=== PATIENT | male | born 1975 | race Caucasian/White ===

== ENCOUNTER 2022-07-19 01:27 | Emergency (ER) | payer OTHER ==
[2022-07-19 01:38] VITALS: TEMP 98.2
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
[2022-07-19 03:32] LABS: Basophils % (A) 1 %; Eosinophils # (A) 0.2 k/uL (0-0.7); Eosinophils % (A) 4 %; HCT 39.1 % (39.0-53.0); HGB 13.4 gm/dL (13.0-17.5); Lymphocytes # (A) 1.1 k/uL (1.0-4.8); Lymphocytes % (A) 28 %; MCH 34.7 pg (25.0-35.0); MCHC 34.2 g/dL (31.0-37.0); MCV 101.5 fL (80.0-100.0); Mean Platelet Volume 8.5; Monocytes # (A) 0.4 k/uL (0-1.0); Monocytes % (A) 10 %; Neutrophils # (A) 2.1 k/uL (1.3-7.7); Neutrophils % (A) 54 %; Platelet Count 170 k/uL (150-450); RBC 3.85 m/uL (4.30-5.90); WBC 3.8 k/uL (3.8-10.6)
[2022-07-19 03:53] LABS: ALT 86 U/L (4-49); AST 165 U/L (17-59); African American GFR (CKD) >90 (>60 ml/min/1.73 sqM); Alkaline Phosphatase 71 U/L (38-126); Anion Gap 9 mmol/L; Blood Urea Nitrogen 7 mg/dL (9-20); Carbon Dioxide 25 mmol/L (22-30); Chloride 104 mmol/L (98-107); Glucose 101 mg/dL (74-99); Magnesium 1.7 mg/dL (1.6-2.3); Non-African American GFR(CKD) >90 (>60 ml/min/1.73 sqM); Potassium 3.5 mmol/L (3.5-5.1); Sodium 138 mmol/L (137-145); Total Bilirubin 1.3 mg/dL (0.2-1.3); Total Protein 6.4 g/dL (6.3-8.2)
[2022-07-19 04:04] VITALS: BP 140/98; PULSE 88; RESP 18
== END 2022-07-19 04:04 | disposition home or self-care (01) ==
LOC: EC 01:27
DX: F10.10 Alcohol abuse, uncomplicated (principal); F43.10 Post-traumatic stress disorder, unspecified; Z86.59 Personal history of other mental and behavioral disorders
CPT/HCPCS: 36415; 80053; 83735; 85025; 99285